=== PATIENT | female | born 1950 | race Caucasian/White ===

== ENCOUNTER 2016-05-22 08:28 | Day surgery (SDC) | payer MEDICARE ==
--- NOTE | ~2016-05-22 | EGD ---
EGD REPORT [facility] [address] [address] NAME: OLESYA WATERMAN : [birth year] STATUS : REG [facility]#: [id number] AGE: 65 ADM/REG DATE : 05/22/16 MR#: [id number] REPORT SERV DATE: 05/22/16 DICTATED BY: JUSTYN LUNA DATE: 05/22/16 REPORT STATUS : Draft [facility]: [facility] DATE: 05/22/16 Endoscopy Center Patient Name: Olesya Waterman Date of : 1950 Attending MD: JUSTYN LUNA MD Procedure Date No Time: 05/22/2016 Procedure: Upper GI endoscopy Indications: Dysphagia Referring MD: PEGGY NATH Medicines: See the Anesthesia note for documentation of the administered medications Complications: No immediate complications. Procedure: Pre-Anesthesia Assessment: - ASA Grade Assessment: III - A patient with severe systemic disease. After obtaining informed consent, the endoscope was passed under direct vision. Throughout the procedure, the patient's blood pressure, pulse, and oxygen saturations were monitored continuously. The GIF [id number] was introduced through the mouth, and advanced to the second part of duodenum. The upper GI endoscopy was accomplished without difficulty. The patient tolerated the procedure well. Findings: The examined duodenum was normal. The entire examined stomach was normal. The cardia and gastric fundus were normal on retroflexion. A small hiatus hernia was present. A guidewire was placed and the scope was withdrawn. Dilation was performed with a Savary dilator with no resistance at 48 Fr. The lower third of the esophagus was normal. Biopsies were taken with a cold forceps for histology. Intact fundoplication Impression: - Normal examined duodenum. - Normal stomach. - Hiatus hernia. Dilated. - Normal lower third of esophagus. Biopsied. - Intact fundoplication Recommendation: - Patient has a contact number available for emergencies. The signs and symptoms of potential delayed complications were discussed with the patient. Return to normal activities tomorrow. Written discharge EGD REPORT [facility] [address] [place]. [address] NAME: OLESYA WATERMAN : [birth year] STATUS : REG [facility]#: [id number] AGE: 65 ADM/REG DATE : 05/22/16 MR#: [id number] REPORT SERV DATE: 05/22/16 DICTATED BY: JUSTYN LUNA DATE: 05/22/16 REPORT STATUS : Draft TRANSCRIBED BY: [employer] DATE: 05/22/16 instructions were provided to the patient. - Clear liquid diet today. - Continue present medications. - Resume Eliquis today Call office to schedule colonoscopy - FOR YOUR BIOPSY RESULTS: Please go to [email or web address] and register to receive your results via the portal. Your biopsy results will be posted there in about 7 to 10 days. IF you do not see result in 10 days, call office. - Clear liquids today, soft diet tomorrow, regular diet the following day Procedure Code(s): --- Professional --- 24292, Esophagogastroduodenoscopy, flexible, transoral; with insertion of guide wire followed by passage of dilator(s) through esophagus over guide wire 69039, Esophagogastroduodenoscopy, flexible, transoral; with biopsy, single or multiple Diagnosis Code(s): --- Professional --- K44.9, Diaphragmatic hernia without obstruction or gangrene R13.10, Dysphagia, unspecified CPT copyright 2013 [employer]. All rights reserved. The codes documented in this report are preliminary and upon basket braider review may be revised to meet current compliance requirements. Justyn Luna MD JUSTYN LUNA MD 05/22/2016 10:03 AM This report has been signed electronically. Number of Addenda: 0 Note Initiated On: 05/22/2016 9:46 AM Scope Withdrawal Time 0 hours 0 minutes 0 seconds [id number] [id number]
[~2016-05-22 08:28] MED LIST: COREG25 PO; ELIQUIS 5 MG TAB5 MG PO; ESTRACE1 MG PO; LYRICA300 MG PO; NORV5 PO; VITAMIN B-121000 MC1 SL
== END 2016-05-22 23:59 | disposition home or self-care (01) ==
LOC: DMU 08:28
PROVIDERS: Internal Medicine Gastroenterology
PROC: 0DB38ZX Excision of Lower Esophagus, Via Natural or Artificial Opening Endoscopic, Diagnostic (ICD-10-PCS; principal; 2016-05-22 10:30)
PROC: 0D758ZZ Dilation of Esophagus, Via Natural or Artificial Opening Endoscopic (ICD-10-PCS; 2016-05-22 10:30)
DX: K44.9 Diaphragmatic hernia without obstruction or gangrene (principal); I10 Essential (primary) hypertension; I48.0 Paroxysmal atrial fibrillation; M79.7 Fibromyalgia; Z98.890 Other specified postprocedural states
CPT/HCPCS: 88305